=== PATIENT | female | born 1935 | race Asian ===

== ENCOUNTER 2018-02-01 10:38 | Inpatient (IN) | payer MEDICAID, MEDICARE ==
[~2018-02-01] VITALS: Ht 157.5 cm; Wt 59.0 kg
[2018-02-01] MEDS ORDERED: NS 250 ML IV ONE (11:30)
[2018-02-01] MEDS ORDERED: COMMUNICATION ORDER XX ONE (11:30)
[2018-02-01 11:40] VITALS: BP_SYST 127
[2018-02-01] MEDS ORDERED: NOR10 PO (11:58)
[2018-02-01] MEDS ORDERED: LIP40 PO (11:58)
[2018-02-01] MEDS ORDERED: SULF1TAB48 PO (11:58)
[2018-02-01] MEDS ORDERED: RANI150T8 PO (11:58)
[2018-02-01] MEDS ORDERED: PHEN-791 PO (11:58)
[2018-02-01] MEDS ORDERED: LOSA100T11 PO (11:58)
[2018-02-01] MEDS ORDERED: NS 500 ML IV ONE ×3 (12:15→16:45)
[2018-02-01] MEDS ORDERED: ONDANSETRON HCL 4 MG/2 ML VIAL IVP PRN (12:15)
[2018-02-01] MEDS ORDERED: ONDANSETRON HCL 4 MG/2 ML VIAL ONE (12:16)
[2018-02-01 12:37] VITALS: BP_SYST 157
[2018-02-01] MEDS: INSULIN REGULAR, HUMAN 100 UNITS/ML, 10 ML VIAL (novoLIN R) SUBCUT PRN ×3 (12:37→20:06)
[2018-02-01 12:38] LABS: HEMATOCRIT 39.4 % (36-48); HEMOGLOBIN 12.6 g/dL (12.0-16.0)
[2018-02-01 12:44] LABS: MEAN CORPUSCULAR HEMOGLOBIN 22 pg (27-31); MEAN CORPUSCULAR HGB CONC 32 % (32-36); MEAN CORPUSCULAR VOLUME 68 fL (79.0-98.0); PLATELET COUNT (AUTO) 234 K/uL (130-430); RED BLOOD CELL COUNT(AUTO) 5.79 MIL/uL (4.2-6.2); WHITE BLOOD COUNT (AUTO) 13.3 K/uL (4.8-10.8)
[2018-02-01 12:46] LABS: ANION GAP 18 (5-15); CALCIUM 9.8 mg/dL (8.4-11.0); CHLORIDE 93 mmol/L (98-107); CREATININE 1.42 mg/dL (0.55-1.30); GLUCOSE 302 mg/dL (70-99); POTASSIUM 4.3 mmol/L (3.5-5.1); SODIUM SERUM 133 mmol/L (136-145); UREA NITROGEN, BLOOD 14 mg/dL (8-21)
[2018-02-01] MEDS: cefTRIAXone 1 GM IVPB PREMIX 50 ML IV SCH (12:49)
[2018-02-01 12:51] LABS: ALANINE AMINOTRANSFERASE 20 U/L (12-78); ALBUMIN 3.9 g/dL (3.4-4.8); ASPARTATE AMINOTRANSFERASE 15 U/L (10-37); TOTAL BILIRUBIN 0.7 mg/dL (0.0-1.0)
[2018-02-01 16:05] VITALS: BP_SYST 146
[2018-02-01 16:11] LABS: BILIRUBIN,URINE NEGATIVE (NEGATIVE); CLARITY/URINE CLEAR (CLEAR); COLOR,URINE YELLOW (YELLOW); GLUCOSE,URINE 3+ (NEGATIVE); KETONES,URINE NEGATIVE (NEGATIVE); LEUKOCYTE ESTERASE ,URINE NEGATIVE (NEGATIVE); NITRITE, URINE NEGATIVE (NEGATIVE); PROTEIN URINE NEGATIVE (NEGATIVE); UROBILINOGEN,URINE 0.2 (0.2-1.0)
[2018-02-01] MEDS: NACL 0.9% 1,000 ML IV SCH ×2 (16:11→20:37)
[2018-02-01 16:20] LABS: BLOOD, URINE TRACE (NEGATIVE)
[2018-02-01 16:21] LABS: BACTERIA,URINE FEW /HPF (None Seen); MUCUS,URINE None Seen /LPF (None Seen); RBC,URINE 0-3 /HPF (0-3); WBC,URINE 0-3 /HPF (0-3)
[2018-02-01] MEDS: ACETAMINOPHEN 325 MG TABLET PO PRN (16:58)
[2018-02-01 17:30] VITALS: BP_SYST 148
[2018-02-01] MEDS ORDERED: METOPROLOL TARTRATE 25 MG TABLET PO ONE (18:00)
[2018-02-01 20:00] VITALS: BP_SYST 156
[2018-02-01] MEDS: FAMOTIDINE 20 MG TABLET PO SCH (20:03)
[2018-02-01] MEDS: ENOXAPARIN SODIUM 30 MG/0.3 ML SYRINGE SUBCUT SCH (20:04)
[2018-02-02 00:03] VITALS: BP_SYST 152
[2018-02-02] MEDS: NACL 0.9% 1,000 ML IV SCH ×2 (00:37→10:58)
[2018-02-02] MEDS: ACETAMINOPHEN 325 MG TABLET PO PRN ×3 (02:13→20:13)
[2018-02-02 06:34] LABS: BASOPHILS # (AUTO) 0.1 K/uL (0.0-0.2); BASOPHILS % (AUTO) 0.6 % (0.0-2.0); EOSINOPHILS # (AUTO) 0.1 K/uL (0.0-0.4); EOSINOPHILS % (AUTO) 0.9 % (0.0-4.0); HEMATOCRIT 35.5 % (36-48); HEMOGLOBIN 11.3 g/dL (12.0-16.0); LYMPHOCYTES # (AUTO) 1.8 K/uL (1.0-5.5); MEAN CORPUSCULAR HEMOGLOBIN 22 pg (27-31); MEAN CORPUSCULAR HGB CONC 32 % (32-36); MEAN CORPUSCULAR VOLUME 69 fL (79.0-98.0); MONOCYTES # (AUTO) 0.7 K/uL (0.0-1.0); MONOCYTES % (AUTO) 8.5 % (1.7-9.3); PLATELET COUNT (AUTO) 209 K/uL (130-430); RED BLOOD CELL COUNT(AUTO) 5.16 MIL/uL (4.2-6.2); WHITE BLOOD COUNT (AUTO) 8.7 K/uL (4.8-10.8)
[2018-02-02] MEDS: INSULIN REGULAR, HUMAN 100 UNITS/ML, 10 ML VIAL (novoLIN R) SUBCUT PRN ×4 (06:38→21:15)
[2018-02-02 07:00] LABS: ALANINE AMINOTRANSFERASE 20 U/L (12-78); ALBUMIN 3.5 g/dL (3.4-4.8); ANION GAP 7 (5-15); ASPARTATE AMINOTRANSFERASE 20 U/L (10-37); CALCIUM 9.2 mg/dL (8.4-11.0); CHLORIDE 99 mmol/L (98-107); CHOLESTEROL 178 mg/dL (<200); CREATININE 0.87 mg/dL (0.55-1.30); GLUCOSE 185 mg/dL (70-99); HDL CHOLESTEROL 57 mg/dL (>55); LDL CHOLESTEROL 97 mg/dL (<100); POTASSIUM 3.8 mmol/L (3.5-5.1); SODIUM SERUM 135 mmol/L (136-145); THYROID STIMULATING HORMONE 0.35 uIu/mL (0.34-4.82); TOTAL BILIRUBIN 0.6 mg/dL (0.0-1.0); TRIGLYCERIDES 141 mg/dL (30-150); UREA NITROGEN, BLOOD 8 mg/dL (8-21)
[2018-02-02 07:09] LABS: RED CELL DISTRIBUTION WIDTH 19.2 % (9.0-15.0)
[2018-02-02] MEDS: METOPROLOL TARTRATE 25 MG TABLET PO SCH ×2 (07:40→20:12)
[2018-02-02] MEDS: LOSARTAN POTASSIUM 50 MG TABLET (COZAAR) PO SCH (07:41)
[2018-02-02] MEDS ORDERED: IBUPROFEN 600 MG TABLET PO PRN (08:15)
[2018-02-02] MEDS: amLODIPine BESYLATE 10 MG TABLET PO SCH (08:42)
[2018-02-02] MEDS: ATORVASTATIN 20 MG TABLET PO SCH (08:42)
[2018-02-02] MEDS ORDERED: IBUPROFEN 600 MG TABLET ONE (08:43)
[2018-02-02] MEDS: FAMOTIDINE 20 MG TABLET PO SCH ×2 (08:43→20:12)
[2018-02-02 08:48] VITALS: BP_SYST 148
[2018-02-02] MEDS ORDERED: FUROSEMIDE 40 MG TABLET PO SCH (09:00)
[2018-02-02] MEDS: MAG-AL HYDROX/SIMETH 30 ML UDC PO PRN ×2 (10:57→16:16)
[2018-02-02] MEDS: cefTRIAXone 1 GM IVPB PREMIX 50 ML IV SCH (11:04)
[2018-02-02 11:22] VITALS: BP_SYST 148
[2018-02-02] MEDS ORDERED: THORAZINE (chlorproMAZINE) 25 MG TAB PO PRN (15:00)
[2018-02-02 15:29] VITALS: BP_SYST 146
[2018-02-02] MEDS ORDERED: MILK OF MAGNESIA 30 ML UDC PO ONE (16:30)
[2018-02-02 20:00] VITALS: BP_SYST 152
[2018-02-02] MEDS: ENOXAPARIN SODIUM 30 MG/0.3 ML SYRINGE SUBCUT SCH (20:12)
[2018-02-02] MEDS: TEMAZEPAM 15 MG CAPSULE PO SCH (20:13)
[2018-02-03 01:01] VITALS: BP_SYST 118
[2018-02-03] MEDS: NACL 0.9% 1,000 ML IV SCH (03:23)
[2018-02-03] MEDS: INSULIN REGULAR, HUMAN 100 UNITS/ML, 10 ML VIAL (novoLIN R) SUBCUT PRN ×4 (06:08→21:28)
[2018-02-03 07:02] LABS: BASOPHILS # (AUTO) 0.1 K/uL (0.0-0.2); BASOPHILS % (AUTO) 0.9 % (0.0-2.0); EOSINOPHILS # (AUTO) 0.2 K/uL (0.0-0.4); EOSINOPHILS % (AUTO) 2.7 % (0.0-4.0); HEMATOCRIT 34.8 % (36-48); LYMPHOCYTES # (AUTO) 1.9 K/uL (1.0-5.5); LYMPHOCYTES % (AUTO) 28.5 % (20.5-51.5); MEAN CORPUSCULAR HEMOGLOBIN 22 pg (27-31); MEAN CORPUSCULAR HGB CONC 32 % (32-36); MEAN CORPUSCULAR VOLUME 70 fL (79.0-98.0); MONOCYTES # (AUTO) 0.7 K/uL (0.0-1.0); MONOCYTES % (AUTO) 9.8 % (1.7-9.3); NEUTROPHILS # (AUTO) 3.9 K/uL (1.8-7.7); NEUTROPHILS % (AUTO) 58.1 % (40.0-70.0); PLATELET COUNT (AUTO) 230 K/uL (130-430); RED BLOOD CELL COUNT(AUTO) 4.95 MIL/uL (4.2-6.2); RED CELL DISTRIBUTION WIDTH 20.1 % (9.0-15.0); WHITE BLOOD COUNT (AUTO) 6.8 K/uL (4.8-10.8)
[2018-02-03 07:24] LABS: ALANINE AMINOTRANSFERASE 25 U/L (12-78); ALBUMIN 3.1 g/dL (3.4-4.8); ANION GAP 7 (5-15); ASPARTATE AMINOTRANSFERASE 28 U/L (10-37); CALCIUM 9.2 mg/dL (8.4-11.0); CHLORIDE 102 mmol/L (98-107); CREATININE 0.92 mg/dL (0.55-1.30); GLUCOSE 201 mg/dL (70-99); POTASSIUM 3.8 mmol/L (3.5-5.1); SODIUM SERUM 136 mmol/L (136-145); TOTAL BILIRUBIN 0.4 mg/dL (0.0-1.0); UREA NITROGEN, BLOOD 8 mg/dL (8-21)
[2018-02-03 08:00] VITALS: BP_SYST 151
[2018-02-03] MEDS: ATORVASTATIN 20 MG TABLET PO SCH (08:26)
[2018-02-03] MEDS: LOSARTAN POTASSIUM 50 MG TABLET (COZAAR) PO SCH (08:27)
[2018-02-03] MEDS: amLODIPine BESYLATE 10 MG TABLET PO SCH (08:28)
[2018-02-03] MEDS: FAMOTIDINE 20 MG TABLET PO SCH ×2 (08:28→20:07)
[2018-02-03] MEDS: METOPROLOL TARTRATE 25 MG TABLET PO SCH ×2 (08:28→20:08)
[2018-02-03] MEDS: ACETAMINOPHEN 325 MG TABLET PO PRN ×2 (10:41→20:08)
[2018-02-03 11:46] VITALS: BP_SYST 143
[2018-02-03] MEDS: cefTRIAXone 1 GM IVPB PREMIX 50 ML IV SCH (12:11)
[2018-02-03 16:18] VITALS: BP_SYST 144
[2018-02-03 19:56] VITALS: BP_SYST 148
[2018-02-03] MEDS: ENOXAPARIN SODIUM 30 MG/0.3 ML SYRINGE SUBCUT SCH (20:08)
[2018-02-03] MEDS: TEMAZEPAM 15 MG CAPSULE PO SCH (20:09)
[2018-02-04 00:04] VITALS: BP_SYST 141
[2018-02-04 04:39] VITALS: BP_SYST 154
[2018-02-04] MEDS: INSULIN REGULAR, HUMAN 100 UNITS/ML, 10 ML VIAL (novoLIN R) SUBCUT PRN ×2 (06:06→11:24)
[2018-02-04 06:58] LABS: BASOPHILS # (AUTO) 0.1 K/uL (0.0-0.2); BASOPHILS % (AUTO) 0.9 % (0.0-2.0); EOSINOPHILS # (AUTO) 0.2 K/uL (0.0-0.4); EOSINOPHILS % (AUTO) 3.1 % (0.0-4.0); HEMATOCRIT 39.2 % (36-48); HEMOGLOBIN 12.1 g/dL (12.0-16.0); LYMPHOCYTES # (AUTO) 1.8 K/uL (1.0-5.5); LYMPHOCYTES % (AUTO) 26.4 % (20.5-51.5); MEAN CORPUSCULAR HEMOGLOBIN 22 pg (27-31); MEAN CORPUSCULAR HGB CONC 31 % (32-36); MEAN CORPUSCULAR VOLUME 70 fL (79.0-98.0); MONOCYTES # (AUTO) 0.6 K/uL (0.0-1.0); MONOCYTES % (AUTO) 8.9 % (1.7-9.3); NEUTROPHILS # (AUTO) 4.1 K/uL (1.8-7.7); NEUTROPHILS % (AUTO) 60.7 % (40.0-70.0); PLATELET COUNT (AUTO) 256 K/uL (130-430); RED BLOOD CELL COUNT(AUTO) 5.57 MIL/uL (4.2-6.2); RED CELL DISTRIBUTION WIDTH 19.7 % (9.0-15.0); WHITE BLOOD COUNT (AUTO) 6.8 K/uL (4.8-10.8)
[2018-02-04 08:09] LABS: ALANINE AMINOTRANSFERASE 40 U/L (12-78); ALBUMIN 3.4 g/dL (3.4-4.8); ANION GAP 8 (5-15); ASPARTATE AMINOTRANSFERASE 39 U/L (10-37); CALCIUM 9.8 mg/dL (8.4-11.0); CHLORIDE 103 mmol/L (98-107); CREATININE 0.77 mg/dL (0.55-1.30); GLUCOSE 157 mg/dL (70-99); POTASSIUM 3.7 mmol/L (3.5-5.1); SODIUM SERUM 139 mmol/L (136-145); TOTAL BILIRUBIN 0.5 mg/dL (0.0-1.0); UREA NITROGEN, BLOOD 9 mg/dL (8-21)
[2018-02-04 08:11] VITALS: BP_SYST 153
[2018-02-04] MEDS: LOSARTAN POTASSIUM 50 MG TABLET (COZAAR) PO SCH (08:14)
[2018-02-04] MEDS: amLODIPine BESYLATE 10 MG TABLET PO SCH (08:15)
[2018-02-04] MEDS: ATORVASTATIN 20 MG TABLET PO SCH (08:15)
[2018-02-04] MEDS: METOPROLOL TARTRATE 25 MG TABLET PO SCH (08:15)
[2018-02-04] MEDS: FAMOTIDINE 20 MG TABLET PO SCH (08:15)
[2018-02-04] MEDS: ACETAMINOPHEN 325 MG TABLET PO PRN (08:43)
[2018-02-04 11:29] VITALS: BP_SYST 125
[2018-02-04] MEDS: cefTRIAXone 1 GM IVPB PREMIX 50 ML IV SCH (11:32)
[2018-02-04 14:22] VITALS: BP_SYST 125
[2018-02-04] MEDS ORDERED: METO50TA7 PO (14:35)
[2018-02-04] MEDS ORDERED: CIPR-211 PO (14:36)
[2018-02-04] MEDS ORDERED: LACT1CAP55 PO (14:36)
[2018-02-04] MEDS ORDERED: METOPROLOL TARTRATE 50 MG TABLET PO SCH (21:00)
== END 2018-02-04 15:05 | disposition home or self-care (01) | DRG 720 ==
LOC: STU 10:38
PROVIDERS: ADMIT Internal Medicine; ATTEND Internal Medicine
DX: A41.9 Sepsis, unspecified organism (principal); N17.9 Acute kidney failure, unspecified; E11.65 Type 2 diabetes mellitus with hyperglycemia; N39.0 Urinary tract infection, site not specified; E87.1 Hypo-osmolality and hyponatremia; K57.92 Diverticulitis of intestine, part unspecified, without perforation or abscess without bleeding; E78.5 Hyperlipidemia, unspecified; E03.9 Hypothyroidism, unspecified; I10 Essential (primary) hypertension; Z96.651 Presence of right artificial knee joint; M19.90 Unspecified osteoarthritis, unspecified site; G47.00 Insomnia, unspecified; R51 Headache; Z79.4 Long term (current) use of insulin
CPT/HCPCS: 36415; 71045; 80053; 80061; 81000-TC; 82962; 83036; 83605; 83735-TC; 83880; 84443-TC; 85025; 87040-TC; 87086; 93005; 97110-GP; 97116-GP; 97530-GP; J0696; J1650; J1815; J2405; J7030; J7040; Q0161